=== PATIENT | male | born 1975 | race American Indian/Alaskan Native ===

== ENCOUNTER 2017-02-14 07:48 | Day surgery (SDC) | payer OTHER ==
[2017-02-14] MEDS ORDERED: NACL 0.9% 1000 ML 1,000 ML IV SCH (09:00)
--- NOTE | 2017-02-14 09:05 | Anesthesia Day of Surgery ---
Anesthesia Day of Surgery - Day of Surgery Patient Examined: Yes Patient H&P Reviewed: Yes Patient is NPO: Yes
--- NOTE | 2017-02-14 09:05 | Anesthesia Consultation ---
Anesthesia Consult and Med Hx Date of service: 02/14/17 - Airway Anesthetic Teeth Evaluation: Good ROM Head & Neck: Adequate Mental/Hyoid Distance: Adequate Mallampati Class: Class I Intubation Access Assessment: Good - Pulmonary Exam CTA: Yes - Cardiac Exam Cardiac Exam: RRR - Pre-Operative Health Status ASA Pre-Surgery Classification: ASA3 Proposed Anesthetic Plan: MAC - Pulmonary Hx Sleep Apnea: Yes (cpap) - Cardiovascular System Hx Hypertension: Yes - Gastrointestinal Hx Gastroesophageal Reflux Disease: Yes
[2017-02-14] MEDS ORDERED: WATER FOR IRRIG STERILE IR ONE (09:08)
[2017-02-14] MEDS ORDERED: DIPRIVAN 10 MG/ML IV ONE ×2 (11:43)
--- NOTE | 2017-02-14 11:51 | Operative Report ---
Operative Report Operative Report: Date: 02/14/2017 Operative Report: Date of procedure: 02/14/2017 Procedure: Esophagogastroduodenoscopy with multiple mucosal biopsies Attending physician: Cory Arroyo MD [employer] Developer [employer]: Cory Arroyo MD Indication: Patient is a 41-year-old female who presented with a history of epigastric pain with new onset dysphagia to solids. She also has a history of indigestion and heartburn An upper endoscopy is done to assess patient so that treatment may be directed based on the findings. Consent: Informed consent was obtained after advising the patient and family regarding nature of this procedure, its indications, potential benefits as well as possible complications including but not limited to bleeding perforation and adverse reaction to medication, infection as well as other cardiopulmonary complications. An informed written and verbal consent was then obtained after due opportunity was provided for questions and answers. Monitoring: Patient was monitored continuously with pulse oximetry and electrocardiographic recordings as well as blood pressure recordings. Vital signs remained stable throughout this procedure with no untoward events. Preoperative assessment: Patient was assessed immediately prior to this procedure for capacity to tolerate monitored anesthesia care and moderate sedation as well as general anesthesia. Patient's ASA classification is 2, Mallampati class is 2, Hyomental distance is 3. Instrument: Icarus Ascendingn video endoscope Medications: Propofol given intravenously in divided doses. For details please refer to anesthesia records. Description of procedure: Patient was placed in the left lateral decubitus position after achieving sedation, the endoscope was introduced into the esophagus under direct vision. It was then advanced beyond the esophagus into the stomach and then beyond the stomach into the duodenum and to the second portion of the duodenum. It was subsequently withdrawn with careful inspection of all mucosal surfaces with the following findings. Findings: Esophagus was relatively normal however patient had an irregular Z line at 39 cm. There was erythema and erosions in the gastric antrum. Biopsies of the antrum were obtained for histopathology. The duodenum was normal to second portion. Impression: Irregular Z line. Mucosal changes suggestive of gastritis. Plan: Follow pathology report. Direct additional treatment based on the pathology report.
--- NOTE | 2017-02-14 12:02 | Discharge Summary ---
Short Stay Discharge Plan Activity: advance as tolerated Weight Bearing Status: Weight Bear as Tolerated Diet: regular Follow up with: LENNIE BREEN DO [Primary Care Provider] - 7 Days
[2017-02-14 12:46] VITALS: BP 136/86
--- NOTE | 2017-02-14 13:52 | Post Anesthesia Evaluation ---
- Post Anesthesia Evaluation Patient Participated: Yes Airway Patent: Yes Stable Respiratory Function: Yes Nausea/Vomiting: No Temp > 96.8F: Yes Pain Manageable: Yes Adequeate Hydration: Yes Anesthesia Complications: No Block Receding Appropriately: Not Applicable Patient on Ventilator: No
--- NOTE | 2017-02-14 19:42 | Operative Report ---
Operative Report Operative Report: Date: 02/14/2017 Operative Report: Date of procedure: 02/14/2017 Procedure: Esophagogastroduodenoscopy with multiple mucosal biopsies Attending physician: Cory Arroyo MD Stretch Machine Operator: Cory Arroyo MD Indication: Patient is a 41-year-old male who presented with a history of epigastric pain with new onset dysphagia to solids. He also has a history of indigestion and heartburn An upper endoscopy is done to assess patient so that treatment may be directed based on the findings. Consent: Informed consent was obtained after advising the patient and family regarding nature of this procedure, its indications, potential benefits as well as possible complications including but not limited to bleeding perforation and adverse reaction to medication, infection as well as other cardiopulmonary complications. An informed written and verbal consent was then obtained after due opportunity was provided for questions and answers. Monitoring: Patient was monitored continuously with pulse oximetry and electrocardiographic recordings as well as blood pressure recordings. Vital signs remained stable throughout this procedure with no untoward events. Preoperative assessment: Patient was assessed immediately prior to this procedure for capacity to tolerate monitored anesthesia care and moderate sedation as well as general anesthesia. Patient's ASA classification is 2, Mallampati class is 2, Hyomental distance is 3. Instrument: [employer]ories[employer] video endoscope Medications: Propofol given intravenously in divided doses. For details please refer to anesthesia records. Description of procedure: Patient was placed in the left lateral decubitus position after achieving sedation, the endoscope was introduced into the esophagus under direct vision. It was then advanced beyond the esophagus into the stomach and then beyond the stomach into the duodenum and to the second portion of the duodenum. It was subsequently withdrawn with careful inspection of all mucosal surfaces with the following findings. Findings: Esophagus was relatively normal however patient had an irregular Z line at 39 cm. There was erythema and erosions in the gastric antrum. Biopsies of the antrum were obtained for histopathology. The duodenum was normal to second portion. Impression: Irregular Z line. Mucosal changes suggestive of gastritis. Plan: Follow pathology report. Direct additional treatment based on the pathology report.
== END 2017-02-14 07:49 | disposition home or self-care (01) ==
LOC: EDSEX 07:48 → GIO 07:48
PROVIDERS: ATTEND Internal Medicine Gastroenterology
DX: K29.50 Unspecified chronic gastritis without bleeding (principal); K22.8 Other specified diseases of esophagus; F41.9 Anxiety disorder, unspecified; F32.9 Major depressive disorder, single episode, unspecified; I10 Essential (primary) hypertension; G47.33 Obstructive sleep apnea (adult) (pediatric); K21.9 Gastro-esophageal reflux disease without esophagitis; F43.10 Post-traumatic stress disorder, unspecified; Z79.899 Other long term (current) drug therapy; Z87.891 Personal history of nicotine dependence; Z82.49 Family history of ischemic heart disease and other diseases of the circulatory system
CPT/HCPCS: 43239; 88305; 88342; J2704; J7030